=== PATIENT | male | born 1965 | race Caucasian/White ===

== ENCOUNTER 2019-07-26 13:06 | Inpatient (IN) | payer MEDICAID ==
[~2019-07-26] VITALS: Ht 170.2 cm; Wt 84.0 kg
[~2019-07-26 13:06] MED LIST: ACET325T33 PO; AMLO-147 PO; AMOX500C2 PO; ASPI-817 PO; BICT1TAB PO; FLUC200T52 PO; IBUP-1544 PO; METF500T24 PO; TRIA15CR55 TOP
[2019-07-26] MEDS ORDERED: ACETAMINOPHEN 325 MG TAB PO ONE (15:00)
[2019-07-26] MEDS ORDERED: SOD CHLORIDE 0.9% IV ONE (16:00)
[2019-07-26] MEDS ORDERED: PIPER-TAZO 3.375 GM IV (PMX) 100 ML IVPB ONE (16:00)
[2019-07-26] MEDS ORDERED: KETOROLAC 30 MG INJ IV STA (16:02)
[2019-07-26] MEDS ORDERED: SODIUM CHLORIDE 0.9% 500 ML BAG IV ONE (18:00)
[2019-07-26] MEDS ORDERED: ACETAMINOPHEN 650 MG SUPP PR PRN (18:00)
[2019-07-26] MEDS ORDERED: ONDANSETRON 4 MG INJ IV PRN (18:00)
[2019-07-26] MEDS ORDERED: NACL 0.9% 3 ML SYG IV SCH (18:00)
[2019-07-26] MEDS ORDERED: hydrALAzine 20 MG INJ IV PRN (18:00)
[2019-07-26] MEDS ORDERED: morphine 2 MG INJ IV PRN (18:00)
[2019-07-26] MEDS ORDERED: BISACODYL (EC) 5 MG TAB PO PRN (18:00)
[2019-07-26] MEDS ORDERED: DOCUSATE SODIUM 100 MG CAP PO PRN (18:00)
[2019-07-26] MEDS: SOD CHLORIDE 0.9% 1,000 ML IV SCH (19:57)
[2019-07-26] MEDS: HYDROCODONE/APAP (5/325) TAB PO PRN (20:29)
[2019-07-26] MEDS: FAMOTIDINE 20 MG INJ IV SCH (20:29)
[2019-07-26 21:55] VITALS: BP 147/90; PULSE 66; RESP 18
[2019-07-26 21:59] VITALS: Ht 170.2 cm; Wt 84.0 kg
[2019-07-27] MEDS ORDERED: PIPER-TAZO 3.375 GM IV (PMX) 100 ML IVPB ONE
[2019-07-27] MEDS: SOD CHLORIDE 0.9% 1,000 ML IV SCH ×4 (01:53→19:44)
[2019-07-27 03:20] VITALS: BP 133/88; PULSE 66; RESP 16
[2019-07-27] MEDS: HYDROCODONE/APAP (5/325) TAB PO PRN ×2 (06:27→19:52)
[2019-07-27] MEDS: FAMOTIDINE 20 MG INJ IV SCH ×2 (09:35→19:52)
[2019-07-27] MEDS: ENOXAPARIN 30 MG/0.3 ML SYG SC SCH (09:36)
[2019-07-27 15:13] VITALS: BP 130/80; PULSE 70; RESP 20
[2019-07-27 20:11] VITALS: BP 138/86; PULSE 73; RESP 18
[2019-07-27] MEDS: ACETAMINOPHEN 325 MG TAB PO PRN (22:59)
[2019-07-28 02:07] VITALS: BP 121/78; PULSE 70; RESP 18
[2019-07-28] MEDS: SOD CHLORIDE 0.9% 1,000 ML IV SCH ×3 (04:07→17:48)
[2019-07-28] MEDS: GUAIFENESIN/DM 5ML CUP PO PRN ×2 (04:07→08:58)
[2019-07-28 07:47] VITALS: BP 148/89; PULSE 57; RESP 16
[2019-07-28] MEDS: FAMOTIDINE 20 MG INJ IV SCH (08:52)
[2019-07-28] MEDS: ENOXAPARIN 30 MG/0.3 ML SYG SC SCH (08:53)
[2019-07-28 15:14] VITALS: BP 146/74; PULSE 66; RESP 16
[2019-07-28 20:00] VITALS: BP 141/92; PULSE 70; RESP 18
[2019-07-28] MEDS: FAMOTIDINE 20 MG TAB PO SCH (20:15)
[2019-07-28 21:28] VITALS: BP 146/60; PULSE 72; RESP 18
[2019-07-28] MEDS: ACETAMINOPHEN 325 MG TAB PO PRN (22:22)
[2019-07-29 02:00] VITALS: BP 146/93; PULSE 63; RESP 18
[2019-07-29 08:22] VITALS: BP 145/97; PULSE 64; RESP 16
[2019-07-29] MEDS: ENOXAPARIN 30 MG/0.3 ML SYG SC SCH (08:32)
[2019-07-29] MEDS: AMOXICILLIN 500 MG CAP PO SCH ×2 (14:36→21:43)
[2019-07-29] MEDS: ACETAMINOPHEN 325 MG TAB PO PRN (14:39)
[2019-07-29 14:47] VITALS: BP 142/95; PULSE 71; RESP 16
[2019-07-29 20:05] VITALS: BP 125/84; PULSE 66; RESP 19
[2019-07-29] MEDS: FAMOTIDINE 20 MG TAB PO SCH (20:19)
[2019-07-29] MEDS: GUAIFENESIN/DM 5ML CUP PO PRN (20:23)
[2019-07-30 02:24] VITALS: BP 128/82; PULSE 69; RESP 18
[2019-07-30] MEDS: AMOXICILLIN 500 MG CAP PO SCH ×2 (06:17→14:30)
[2019-07-30 08:00] VITALS: BP 147/97; PULSE 68; RESP 18
[2019-07-30] MEDS: ENOXAPARIN 30 MG/0.3 ML SYG SC SCH (08:30)
[2019-07-30 15:27] VITALS: BP 127/88; PULSE 68; RESP 18
[2019-07-30] MEDS ORDERED: MAGNESIUM HYDROXIDE 30ML CUP PO ONE (15:30)
== END 2019-07-30 18:48 | disposition home or self-care (01) | DRG 392 ==
LOC: FTE 13:06 → 5EC 17:27 → OBSVTOIN 22:58
PROVIDERS: ADMIT Internal Medicine; ATTEND Internal Medicine
DX: R10.9 Unspecified abdominal pain (principal); N30.00 Acute cystitis without hematuria; K74.60 Unspecified cirrhosis of liver; D69.6 Thrombocytopenia, unspecified; F17.200 Nicotine dependence, unspecified, uncomplicated; E66.9 Obesity, unspecified; Z59.0 Homelessness
CPT/HCPCS: 36415; 71045; 74176; 74181; 76705; 80053; 80307; 81001; 83036; 83605; 83690; 83735; 84443; 84484; 85025; 85610; 85730; 86701; 86703; 86704; 86709; 86803; 87045; 87081; 87086; 87340; 87400; 87880; 93005; 96365; 96375; G0378; J1650; J1885; J2405; J2543; J7030; J7040